=== PATIENT | female | born 1945 | race American Indian/Alaskan Native ===

== ENCOUNTER 2017-01-20 05:50 | Day surgery (SDC) | payer BC, MEDICARE ==
[2017-01-20] MEDS ORDERED: ECOTRIN PO ONE (06:23)
[2017-01-20 06:55] LABS: Basophils % (Auto) 0.5 % (0.0-1.8); Eosinophils % (Auto) 1.7 % (0.0-4.3); Hematocrit 41.9 % (30.3-42.9); Hemoglobin 13.8 gm/dl (10.1-14.3); Mean Corpuscular HGB Conc 33 % (30-34); Mean Corpuscular Hemoglobin 30 pg (28-32); Mean Corpuscular Volume 89 fl (79-97); Platelet Count 249 K/mm3 (140-440); Red Cell Distribution Width 13.3 % (13.2-15.2); White Blood Count 5.4 K/mm3 (4.5-11.0)
[2017-01-20] MEDS ORDERED: NACL 0.9% 500 ML 500 ML IV SCH (07:00)
[2017-01-20 07:05] LABS: INR 0.98 (0.87-1.13)
[2017-01-20 07:50] LABS: Anion Gap 17 mmol/L; BUN/Creatinine Ratio 15.71; Blood Urea Nitrogen 11 mg/dL (7-17); Calcium 8.9 mg/dL (8.4-10.2); Carbon Dioxide 27 mmol/L (22-30); Chloride 105.9 mmol/L (98-107); Glucose 98 mg/dL (65-100); Potassium 4.5 mmol/L (3.6-5.0); Sodium 145 mmol/L (137-145)
[2017-01-20] MEDS ORDERED: XYLOCAINE 2% INFILTRATI ONE (07:52)
[2017-01-20] MEDS ORDERED: HEPARIN 10,000 UNITS/10 ML ONE (07:52)
[2017-01-20] MEDS ORDERED: NITROGLYCERIN SYRINGE 3 ML ONE (07:52)
[2017-01-20] MEDS ORDERED: HEPARIN/NS 5000 UNIT/500ML(CATH LAB) 1,000 ML IR ONE (07:52)
[2017-01-20] MEDS ORDERED: CALAN ONE (07:52)
[2017-01-20] MEDS ORDERED: SUBLIMAZE ONE (07:53)
[2017-01-20] MEDS ORDERED: VERSED ONE (07:53)
--- NOTE | 2017-01-20 09:48 | Discharge Summary ---
Short Stay Discharge Plan Activity: advance as tolerated Diet: low fat, low cholesterol, low salt Special Instructions: other (POST CARDIAC CATH INSTRUCTIONS) Follow up with: ROSY GOLDMAN MD [Primary Care Provider] - 7 Days CASIMIRO RODRÍGUEZ MD [Staff Physician] - 7 Days
[2017-01-20 11:19] VITALS: BP 135/62
--- NOTE | 2017-01-20 18:14 | Cardiac Catherization Report ---
HISTORY: The patient is a 71-year-old female who underwent a stress test that was abnormal. She has been having symptoms that include chest discomfort and left arm discomfort. Coronary angiography was recommended. PROCEDURE: Left heart catheterization, ventriculography, and coronary angiography via the right radial artery using 5-[place] catheters including a 3.5 left Jan, pigtail, and AR1. We also used a 3DRC. COMPLICATIONS: None. TISSUE SAMPLES: None. ESTIMATED BLOOD LOSS: 10-20 mL. SEDATION: Intravenous Versed and fentanyl. PREPROCEDURE DIAGNOSIS: Coronary artery disease. POSTPROCEDURE DIAGNOSES: Mild coronary artery disease. HEMODYNAMICS: Central aortic pressure 115/72. Left ventricular pressure 120/16. ANGIOGRAPHIC RESULTS: 1. Left ventricle: The ventriculogram reveals a normal sized left ventricle with normal systolic function. The ejection fraction is 60%-65%. 2. Right coronary artery: This is a nondominant vessel, which has mild intimal irregularities. 3. Left coronary artery: This is a large caliber vessel with mild calcification at the proximal portion. The left main is free of remarkable disease. The circumflex is free of remarkable disease. The LAD contains a 30% stenosis proximally at the takeoff of the first diagonal branch. The first diagonal branch has an ostial 20% stenosis. FINAL IMPRESSION: Mild coronary artery disease and normal left ventricular function. PLAN: Aggressive medical therapy, CAD risk factor modification, office followup within 7 days. The patient is being prepped for upcoming surgery and appears to be at low risk cardiac smart for perioperative complications. Consider GI workup for additional chest discomfort. [facility]# [id number] JHOAN/HEAVEN
== END 2017-01-20 11:32 | disposition home or self-care (01) ==
LOC: OPU 05:50
PROVIDERS: ATTEND Internal Medicine
DX: I25.10 Atherosclerotic heart disease of native coronary artery without angina pectoris (principal); M81.0 Age-related osteoporosis without current pathological fracture; I10 Essential (primary) hypertension; Z88.8 Allergy status to other drugs, medicaments and biological substances; Z88.5 Allergy status to narcotic agent; Z79.899 Other long term (current) drug therapy; Z90.710 Acquired absence of both cervix and uterus; Z98.49 Cataract extraction status, unspecified eye; Z87.891 Personal history of nicotine dependence; Z72.89 Other problems related to lifestyle; Z82.49 Family history of ischemic heart disease and other diseases of the circulatory system
CPT/HCPCS: 36415; 80048; 85025; 85610; 85730; 93005; 93010; 93458; C1894; J1644; J2250; J3010; J7040; Q9967

== ENCOUNTER 2017-06-27 07:52 | Outpatient (CLI) | payer MEDICARE ==
--- NOTE | 2017-06-27 09:54 | Mammography Report ---
Bilateral digital screening mammogram with CAD. Comparison is made to the previous study on June 24, 2016. Findings: There is heterogeneous density of the fibroglandular tissue. In the upper outer quadrant of the left breast, there is a focal subcentimeter nodular asymmetry best seen on the CC projection. No architectural distortion or suspicious calcifications are seen. Impression: Left frontal asymmetry. BI-RADS code: 0. Recommendation: Spot compression images, 90 degree view, and ultrasound if needed.
== END 2017-06-27 07:53 | disposition home or self-care (01) ==
LOC: MAMMO 07:52
PROVIDERS: ATTEND Obstetrics & Gynecology Gynecology
DX: Z12.31 Encounter for screening mammogram for malignant neoplasm of breast (principal)
CPT/HCPCS: 77067; G0202

== ENCOUNTER 2017-07-13 07:41 | Outpatient (CLI) | payer MEDICARE ==
--- NOTE | 2017-07-13 15:18 | Mammography Report ---
LEFT DIGITAL DIAGNOSTIC MAMMOGRAM and LEFT BREAST ULTRASOUND: 07/13/17 07:41:00 CLINICAL: Recalled for asymmetries. COMPARISON:06/27/17 screening FINDINGS: ML and spot compression MLO and CC views were performed. Oval circumscribed densities persist on all views. Ultrasound of the upper outer left breast was performed and demonstrated three benign cysts and no solid mass. The largest cyst is at 2 o'clock 5 cm from the nipple and measures 6 x 5 x 5 mm. It correlates with the dominant circumscribed asymmetry on all mammographic views. 2 additional cysts in the same area measure 5 mm and 4 mm. IMPRESSION: Benign cysts left breast. BI-RADS CATEGORY: 2 - - Benign RECOMMENDATION: Routine mammographic screening in one year. ACR BI-RADS MAMMOGRAPHIC CODES: 0 = Needs additional imaging evaluation; 1 = Negative; 2 = Benign; 3 = Probably benign; 4 = Suspicious; 5 = Malignant; 6 = Known biopsy-proven malignancy COMMENT: 1. Dense breast tissue, i.e., adenosis, fibrocystic changes, etc., may obscure an underlying neoplasm. 2. Approximately 10% of cancers are not detected with mammography. 3. A negative mammography report should not delay biopsy if a clinically suspicious mass is present. COMMENT: Patient follow-up letters are generated via our [employer] application.
== END 2017-07-13 07:42 | disposition home or self-care (01) ==
LOC: MAMMO 07:41
PROVIDERS: ATTEND Obstetrics & Gynecology Gynecology
DX: N60.02 Solitary cyst of left breast (principal)
CPT/HCPCS: 76642; G0206

== ENCOUNTER 2019-07-06 08:38 | Outpatient (CLI) | payer MEDICARE ==
--- NOTE | 2019-07-09 09:09 | Mammography Report ---
DIGITAL SCREENING MAMMOGRAM WITH CAD, 07/06/2019 INDICATION: Routine screening mammography. TECHNIQUE: Digital bilateral 2D mammography was obtained in the craniocaudal and mediolateral obliq ue projections. This examination was interpreted with the benefit of Computer-Aided Detection analysi s. COMPARISON: 07/05/2018 FINDINGS: Breast Density: The breasts are heterogeneously dense, which may obscure small masses. There is no evidence of dominant mass, suspicious calcifications or architectural distortion in eithe r breast. IMPRESSION: No mammographic evidence of malignancy. Follow up recommendation: Routine yearly BI-RADS Category 1: Negative. A "normal" or negative report should not discourage follow up or biopsy of a clinically significant f inding. A written summary of these findings will be mailed to the patient. The patient will be entered into a mammography reporting system which will generate a reminder letter for the patient's next appointmen t at the appropriate interval. The [employer] recommends yearly mammograms starting at age 40 and continuing as l da as a woman is in good health. Breast MRI is recommended for women with an approximate 20-25% or greater lifetime risk of breast cancer, including women with a strong family history of breast or ova carter cancer or who have been treated for Hodgkin's disease. Signer Name: Kirt Hooker MD Signed: 07/09/2019 9:05 AM Workstation Name: [id number]
== END 2019-07-06 08:39 | disposition home or self-care (01) ==
LOC: MAMMO 08:38
PROVIDERS: ATTEND Obstetrics & Gynecology
DX: Z12.31 Encounter for screening mammogram for malignant neoplasm of breast (principal); I10 Essential (primary) hypertension; Z90.710 Acquired absence of both cervix and uterus; Z87.891 Personal history of nicotine dependence
CPT/HCPCS: 77067

== ENCOUNTER 2020-07-07 08:27 | Outpatient (CLI) | payer MEDICARE ==
--- NOTE | 2020-07-07 10:56 | Mammography Report ---
DIGITAL SCREENING MAMMOGRAM WITH CAD, 07/07/2020 CLINICAL INFORMATION / INDICATION: Routine screening mammography. SCREENING MAMMO TECHNIQUE: Digital bilateral 2D mammography was obtained in the craniocaudal and mediolateral obliqu e projections. This examination was interpreted with the benefit of Computer-Aided Detection analysis . COMPARISON: 07/06/2019 FINDINGS: Breast Density: The breasts are heterogeneously dense, which may obscure small masses. No dominant mass, suspicious calcifications, or architectural distortion in either breast. Old scar again seen on the right and largely unchanged bilateral nodularity is again present. IMPRESSION: No mammographic evidence of malignancy. Follow up recommendation: Routine yearly BI-RADS Category 2: Benign. A "normal" or negative report should not discourage follow up or biopsy of a clinically significant f inding. A written summary of these findings will be mailed to the patient. The patient will be entered into a mammography reporting system which will generate a reminder letter for the patient's next appointmen t at the appropriate interval. The [employer] recommends yearly mammograms starting at age 40 and continuing as l da as a woman is in good health. Breast MRI is recommended for women with an approximate 20-25% or greater lifetime risk of breast cancer, including women with a strong family history of breast or ova carter cancer or who have been treated for Hodgkin's disease. Signer Name: Dion Peterson MD Signed: 07/07/2020 10:51 AM Workstation Name: [id number]
== END 2020-07-07 08:28 | disposition home or self-care (01) ==
LOC: MAMMO 08:27
PROVIDERS: ATTEND Obstetrics & Gynecology
DX: Z12.31 Encounter for screening mammogram for malignant neoplasm of breast (principal); N63.20 Unspecified lump in the left breast, unspecified quadrant; N63.10 Unspecified lump in the right breast, unspecified quadrant
CPT/HCPCS: 77067

== ENCOUNTER 2021-02-27 09:23 | Outpatient (CLI) | payer MEDICARE ==
--- NOTE | 2021-02-27 12:08 | Mammography Report ---
DEXA BONE DENSITY SCAN INDICATION: OSTEOPOROSIS, postmenopausal female COMPARISON: 06/24/2016 LUMBAR SPINE (L1-L4): Bone mineral density (BMD) is 0.877 g/cm2. T-score is -1.4 (standard deviations of Young Adult mean). Z-score is 0.3 (standard deviations of Age Matched mean). LEFT FEMORAL NECK: Bone mineral density (BMD) is 0.711 g/cm2. T-score is -1.2 (standard deviations of Young Adult mean). Z-score is -0.1 (standard deviations of Age Matched mean). DENSITOMETRY TRENDS: Lumbar change from prior study: Increase 12.9%. Femoral neck mean change from previous study: Increase 3.4%. IMPRESSION: 1. WHO Classification: Osteopenia. Fracture Risk: Increased. Signer Name: Todd Su MD Signed: 02/27/2021 12:04 PM Workstation Name: [id number]
== END 2021-02-27 09:24 | disposition home or self-care (01) ==
LOC: MAMMO 09:23
PROVIDERS: ATTEND Obstetrics & Gynecology
DX: Z13.820 Encounter for screening for osteoporosis (principal); M85.9 Disorder of bone density and structure, unspecified; M81.0 Age-related osteoporosis without current pathological fracture; Z78.0 Asymptomatic menopausal state
CPT/HCPCS: 77080

== ENCOUNTER 2021-07-08 09:27 | Outpatient (CLI) | payer MEDICARE | END 2021-07-08 09:28 | disposition home or self-care (01) | LOC: MAMMO 09:27 | PROVIDERS: ATTEND Obstetrics & Gynecology | DX: Z12.31 Encounter for screening mammogram for malignant neoplasm of breast (principal) | CPT/HCPCS: 77067 ==